=== PATIENT | female | born 1960 | race Asian ===

== ENCOUNTER 2020-08-30 09:20 | Observation (INO) | payer OTHER, SELFPAY ==
[2020-08-30] VITALS (18 sets, daily range): BP systolic 118–164; BP diastolic 67–85; PULSE 72–91; RESP 16–18; TEMP 36.1–36.9; O2SAT 96–100; BMI 28.9
--- NOTE | 2020-08-30 10:10 | ED.GIBLEED ---
HPI - GI Bleed General Chief complaint: GI Bleed Stated complaint: abdominal cramping,bloody diarrhea Time Seen by Provider: 08/30/20 10:10 Source: patient and family Mode of arrival: Ambulatory Limitations: no limitations History of Present Illness HPI Narrative: 60-year-old woman with a history of diabetes, hypertension hyperlipidemia who developed some crampy abdominal pain last night. She had a formed bowel movement with some bright red blood on the outside. Continued to have crampy abdominal pain and this morning had looser stool with blood in clots appreciated in. She has never had any GI bleeding previously. Nobody else in the household is feeling ill. She denies fevers, cough she has had some chills associated with the diarrhea. No chest pain, no dyspnea, no orthostasis type complaints. She has a history of hemorrhoids in association with only and has never had hemorrhoidal bleeding. Related Data Home Medications Medication Instructions Recorded Confirmed atorvastatin [Lipitor] 40 mg PO HS #0 11/01/17 08/30/20 citalopram [Celexa] 20 mg PO QPM #0 11/01/17 08/30/20 loratadine [Claritin] 10 mg PO DAILY #0 11/01/17 08/30/20 benazepril 20 mg PO DAILY 08/30/20 08/30/20 insulin degludec [Tresiba U-100 34 unit SUBCUT BEDTIME 08/30/20 08/30/20 Insulin] liraglutide [Victoza 2-Delfin] 0 mg SUBCUT .COMPLEX 08/30/20 08/30/20 Allergies Allergy/AdvReac Type Severity Reaction Status Date / Time Sulfa (Sulfonamide Allergy Unknown Verified 08/30/20 09:29 Antibiotics) [SULFA (SULFONAMIDE ANTIBIOTICS)] Review of Systems Review of Systems Narrative: Remainder of review of systems including constitutional, ENT, cardiovascular, respiratory, GI, , musculoskeletal, skin, neurologic and psychiatric systems reviewed and are unremarkable except as noted in HPI. Patient History Medical History Diabetes Hyperlipidemia Hypertension Surgical History (Updated 08/30/20 @ 17:25 by Grupo Dial DO) History of cholecystectomy History of hysterectomy Social History household members: spouse Smoking Status: Never smoker alcohol intake: current Smoking Status: Never smoker alcohol intake frequency: 0-2 drinks per day Substance Use Type: does not use Exam Narrative Exam Narrative: General: Healthy appearing, in no acute distress. Able to give a complete and coherent history. Well-nourished well-developed HEENT: Moist mucous membranes, normal sclera with reactive pupils, Neck: No JVD, supple Respiratory: Lungs are clear to auscultation, no wheezing no rales no rhonchi. Full and symmetrical air movement Cardiac: Regular rate and rhythm no murmurs no bruits Abdomen: Soft, mild tenderness in the left lower quadrant without rebound or guarding. Good bowel tones, no flank pain Skin: Warm and dry, no rashes Neurologic: Grossly neurologically intact with no obvious asymmetries or abnormalities Extremities: No trauma, well perfused Psych: Cooperative, appropriate insight and affect Rectal: No significant external hemorrhoids are appreciated and no significant internal hemorrhoids are palpated. There was minor bright red blood on the glove after rectal exam. Initial Vital Signs Initial Vital Signs: Vital Signs Pulse Rate 78 08/30/20 09:25 Pulse Oximetry 97 08/30/20 09:25 Course Orders Ordered: ED Orders 08/30/20 14:40 GI Panel (Film Array) Stat Acetaminophen (Acetaminophen 325 Mg Tablet) 650 mg PO Q6HR PRN PRN Reason: Fever/Mild Pain (1-3) Dextrose (Dextrose 50 % In Water 25 Gm/50 Ml Syringe) 25 gm IV PRN PRN PRN Reason: Hypoglycemia Insulin Aspart (Insulin Aspart 100 Unit/Ml Insuln Pen) 0 unit SUBCUT ACHS PETER; Protocol Insulin Glargine (Insulin Glargine 100 Unit/Ml 3ml Pen) 34 unit SUBCUT BEDTIME PETER Ondansetron HCl (Ondansetron 4 Mg/2 Ml Inj) 4 mg IV Q8HR PRN PRN Reason: Nausea And Vomiting Pantoprazole Sodium (Pantoprazole 40 Mg Vial) 40 mg IV BID PETER Sodium Chloride (Sodium Chloride 0.9% Flush) 10 ml IV PRN PRN PRN Reason: Flush Sodium Chloride (Sodium Chloride 0.9% Flush) 10 ml IV BID PETER Discontinued Medications Sodium Chloride (Normal Saline 0.9%) 1,000 mls @ 1,000 mls/hr IV BOLUS ONE Stop: 08/30/20 11:25 Last Infusion: 08/30/20 11:40 Dose: 0 mls/hr Documented by: Admin: 08/30/20 10:38 Dose: 1,000 mls/hr Documented by: DEEPAK Pantoprazole Sodium (Pantoprazole 40 Mg Vial) 80 mg IV NOW ONE Stop: 08/30/20 17:25 Last Admin: 08/30/20 18:06 Dose: 80 mg Documented by: ALEX Vital Signs Vital signs: Vital Signs - 8 hr 08/30/20 12:00 08/30/20 12:30 08/30/20 13:00 Pulse Rate 73 72 78 Blood Pressure 134/73 131/68 118/74 Pulse Oximetry 99 98 97 08/30/20 13:30 08/30/20 14:00 08/30/20 14:30 Pulse Rate 80 79 83 Blood Pressure 122/73 134/72 133/67 Pulse Oximetry 96 96 96 MDM - GI Bleed Medical Records Attestation: I reviewed the patient's medical records. Lab Data Attestation: I reviewed the patient's lab results. Result diagrams: 08/30/20 19:05 08/30/20 10:20 Labs: Lab Results 08/30/20 08/30/20 08/30/20 Range/Units 10:20 10:20 10:40 WBC 12.5 H (4.5-11.0) X10^3/uL RBC 4.97 (4.0-5.2) X10^6/uL Hgb 14.7 (12.0-16.0) g/dL Hct 43.1 (36-46) % MCV 86.7 (80-100) fL MCH 29.5 (26-34) PG MCHC 34.0 (30-36) % RDW 12.2 (11.6-14.8) % Plt Count 228 (150-400) X10^3/uL Neut % (Auto) 76.2 H (50-75) % Lymph % (Auto) 15.9 L (25-40) % [place] % (Auto) 7.0 (3-14) % Eos % (Auto) 0.3 L (2-4) % Baso % (Auto) 0.6 (0-2) % Neut # (Auto) 9500 H (3612-3936) /uL Lymph # (Auto) 2000 (9793-0924) /uL [place] # (Auto) 900 (0-900) /uL Eos # (Auto) 0 (0-450) /uL Baso # (Auto) 100 (0-100) /uL Sodium 139 (137-145) mmol/L Potassium 3.7 (3.4-5.1) mmol/L Chloride 104 (98-107) mmol/L Carbon Dioxide 29 (22-32) mmol/L BUN 11 (7-17) mg/dL Creatinine 0.48 L (0.52-1.04) mg/dL Estimated GFR > 60.0 (>60) mL/min BUN/Creatinine Ratio 22.9 H (6-22) Glucose 147 H (70-100) mg/dL Calcium 9.2 (8.4-10.2) mg/dL Total Bilirubin 0.9 (0.2-1.3) mg/dL AST 37 H (14-36) IU/L ALT 45 H (<35) IU/L Alkaline Phosphatase 96 (38-126) U/L Total Protein 7.4 (6.3-8.2) g/dL Albumin 4.0 (3.5-5.0) g/dL Globulin 3.4 (1.7-4.1) g/dL Albumin/Globulin Ratio 1.2 (1.0-2.8) Stl C. cayetanensis PCR (Not Detect) Stool Rotavirus (PCR) (Not Detect) Stool Adenovirus (PCR) (Not Detect) Stool Astrovirus (PCR) (Not Detect) Stool Cryptosporidium PCR (Not Detect) Stl E.coli Shiga Tox PCR (Not Detect) St Sh/Enteroin Ecoli PCR (Not Detect) Stool E coli O157 PCR Stl Enterotoxigenic E PCR (Not Detect) Stool EPEC (PCR) (Not Detect) Stl E. histolytica PCR (Not Detect) Stool Giardia Lamblia PCR (Not Detect) Stool Sapovirus (PCR) (Not Detect) Stl P. shigelloides PCR (Not Detect) St Y.enterocolitica PCR (Not Detect) Stool Vibrio (PCR) (Not Detect) Stl Vibrio cholerae PCR (Not Detect) Stl Enteroaggr Ecoli PCR (Not Detect) Stl Norovirus GI/GII PCR (Not Detect) Campylobacter (PCR) (Not Detect) C. difficile Tox (PCR) (Not Detect) SARS-CoV-2 (PCR) (Negative) Salmonella (PCR) (Not Detect) Blood Type A Positive Antibody Screen Negative 08/30/20 08/30/20 Range/Units 10:55 14:40 WBC (4.5-11.0) X10^3/uL RBC (4.0-5.2) X10^6/uL Hgb (12.0-16.0) g/dL Hct (36-46) % MCV (80-100) fL MCH (26-34) PG MCHC (30-36) % RDW (11.6-14.8) % Plt Count (150-400) X10^3/uL Neut % (Auto) (50-75) % Lymph % (Auto) (25-40) % [place] % (Auto) (3-14) % Eos % (Auto) (2-4) % Baso % (Auto) (0-2) % Neut # (Auto) (9625-3044) /uL Lymph # (Auto) (3734-7366) /uL [place] # (Auto) (0-900) /uL Eos # (Auto) (0-450) /uL Baso # (Auto) (0-100) /uL Sodium (137-145) mmol/L Potassium (3.4-5.1) mmol/L Chloride (98-107) mmol/L Carbon Dioxide (22-32) mmol/L BUN (7-17) mg/dL Creatinine (0.52-1.04) mg/dL Estimated GFR (>60) mL/min BUN/Creatinine Ratio (6-22) Glucose (70-100) mg/dL Calcium (8.4-10.2) mg/dL Total Bilirubin (0.2-1.3) mg/dL AST (14-36) IU/L ALT (<35) IU/L Alkaline Phosphatase (38-126) U/L Total Protein (6.3-8.2) g/dL Albumin (3.5-5.0) g/dL Globulin (1.7-4.1) g/dL Albumin/Globulin Ratio (1.0-2.8) Stl C. cayetanensis PCR Not detected (Not Detect) Stool Rotavirus (PCR) Not detected (Not Detect) Stool Adenovirus (PCR) Not detected (Not Detect) Stool Astrovirus (PCR) Not detected (Not Detect) Stool Cryptosporidium PCR Not detected (Not Detect) Stl E.coli Shiga Tox PCR Not detected (Not Detect) St Sh/Enteroin Ecoli PCR Not detected (Not Detect) Stool E coli O157 PCR Not Reportable Stl Enterotoxigenic E PCR Not detected (Not Detect) Stool EPEC (PCR) Not detected (Not Detect) Stl E. histolytica PCR Not detected (Not Detect) Stool Giardia Lamblia PCR Not detected (Not Detect) Stool Sapovirus (PCR) Not detected (Not Detect) Stl P. shigelloides PCR Not detected (Not Detect) St Y.enterocolitica PCR Not detected (Not Detect) Stool Vibrio (PCR) Not detected (Not Detect) Stl Vibrio cholerae PCR Not detected (Not Detect) Stl Enteroaggr Ecoli PCR Not detected (Not Detect) Stl Norovirus GI/GII PCR Not detected (Not Detect) Campylobacter (PCR) Not detected (Not Detect) C. difficile Tox (PCR) Not detected (Not Detect) SARS-CoV-2 (PCR) Negative (Negative) Salmonella (PCR) Not detected (Not Detect) Blood Type Antibody Screen Urine Dip Bedside Urine Glucose Negative Bedside Urine Bilirubin - Negative Bedside Urine Ketone +/- 5 Urine Specific Dennis 1.015 Bedside Urine Occult Blood - Negative Bedside Urine pH 6.5 Bedside Urine Protein - Negative Bedside Urine Urobilinogen - Negative Bedside Urine Nitrite - Negative Bedside Urine Leukocytes - Negative Esterase MDM Narrative Medical decision making narrative: 60-year-old woman with 2 episodes of bright red blood per rectum. Labs are reassuring. She has had no additional bleeding since this morning. She is not orthostatic. She had a colonoscopy approximately 8 years ago and was told that it was entirely normal. She is otherwise feeling well. Discussed options as well as reasons to have bright red blood per rectum. At this point I do not suspect any upper GI bleeding. Diverticular bleed, internal hemorrhoidal bleed and possibility of infectious diarrhea causing bleeding is entertained. Nobody else around her and eating the same foods has had problems with diarrhea so suspect the infectious etiology is less likely. Considering options for disposition, I asked her to provide a stool sample. She was easily able to provide a moderate amount of hematochezia. I suspect that she is in fact having a small diverticular bleed and still oozing a bit. Have recommended observation stay overnight to make sure she does not have more significant bleeding and then discuss need for colonoscopy whether acutely or in outpatient follow-up. Patient and her are agreeable. Stool has been sent for GI array panel Reviewed with Dr Dial who agrees with admit. Requests surgical consultation. Discharge Plan Departure Patient Disposition: Admitted as Observation Clinical Impression: BRBPR (bright red blood per rectum) Admit Date/Time: 08/30/20 15:16 Admit Provider: Grupo Dial
[2020-08-30 10:37] LABS: Add Manual Diff / Slide Review NO; Basophils Absolute Auto 100 /uL (0-100); Basophils Percent Auto 0.6 % (0-2); Eosinophils Absolute Auto 0 /uL (0-450); Eosinophils Percent Auto 0.3 % (2-4); Hematocrit 43.1 % (36-46); Hemoglobin 14.7 g/dL (12.0-16.0); Lymphocytes Absolute Auto 2000 /uL (1100-4500); Lymphocytes Percent Auto 15.9 % (25-40); Mean Corpuscular Hemoglobin 29.5 PG (26-34); Mean Corpuscular Volume 86.7 fL (80-100); Monocytes Absolute Auto 900 /uL (0-900); Neutrophils Absolute Auto 9500 /uL (1500-7000); Neutrophils Percent Auto 76.2 % (50-75); Platelet Count 228 X10^3/uL (150-400); Red Blood Cell Count 4.97 X10^6/uL (4.0-5.2); Red Cell Distribution Width 12.2 % (11.6-14.8); White Blood Cell Count 12.5 X10^3/uL (4.5-11.0)
[2020-08-30] MEDS: SODIUM CHLORIDE 0.9% 1,000 ML 1000 ML IV (10:38)
[2020-08-30 10:44] LABS: Alanine Aminotransferase 45 IU/L (<35); Albumin Globulin Ratio 1.2 (1.0-2.8); Alkaline Phosphatase 96 U/L (38-126); Aspartate Aminotransferase 37 IU/L (14-36); BUN Creatinine Ratio 22.9 (6-22); Bilirubin Total 0.9 mg/dL (0.2-1.3); Blood Urea Nitrogen 11 mg/dL (7-17); Calcium 9.2 mg/dL (8.4-10.2); Carbon Dioxide 29 mmol/L (22-32); Chloride 104 mmol/L (98-107); Estimated Glomerular Filt Rate > 60.0 mL/min (>60); Globulin 3.4 g/dL (1.7-4.1); Glucose 147 mg/dL (70-100); HEMOLYSIS < 15 (0-50); Potassium 3.7 mmol/L (3.4-5.1); Sodium 139 mmol/L (137-145); Total Protein 7.4 g/dL (6.3-8.2)
[2020-08-30 11:21] LABS: COVID19 -Nasal RAPID Negative (Negative)
--- NOTE | 2020-08-30 15:53 | PM.CN ---
History of Present Illness Consult details Date Patient Seen: 08/30/20 Time Patient Seen: 15:53 Chief complaint: abdominal cramping,bloody diarrhea Reason for consult: persistent hematochezia Requesting provider: Radha Camara Narrative: This is a 60-year-old woman with history of insulin-dependent type 2 diabetes (poorly controlled per the patient), hyperlipidemia, and hypertension. She says that yesterday she began having bright red blood per rectum. She is having bilateral lower quadrant pain, equal on both sides. She says she has had so many bloody stools since yesterday that she has lost count. She came into the ER today due to this problem. She was found to have a hemoglobin of 14.7. The ER doctor called me and said that she was about to let the patient go home, and then the patient again had a very copious bright red bloody stool. At that point she recommended the patient be kept overnight for observation, and I was consulted for possible urgent colonoscopy. The patient denies any prior changes to her stool, and had not noted any dark or tarry looking stool, any hard stool, constipation, or diarrhea in recent weeks and months prior to this event. She has had a colonoscopy 8 years ago at the [facility], and was told that it was normal and she needed repeat colonoscopy in 10 years. She denies any history of hemorrhoids, or any anal pain. She does not recall if she was ever told she had diverticulosis on her prior colonoscopy. PMH: DM2, HTN, HLD PSH: lap jessenia, hysterectomy SOC: lives with ; does not smoke Home meds: Benazepril 20 mg daily Tresiba 34 U at night Viktoza 1.8 Atorvastatin 40. Allergies: sulfa FMH: DM2, HTN ROS: The patient denies dizziness, lightheadedness, fevers, chills, nausea, vomiting. She denies any shortness of breath, chest pain, dysuria, extremity swelling or discomfort. Thirteen system review is otherwise negative other than as mentioned below and in HPI. PE: GENERAL: Well groomed and cooperative. Appears stated age. Answers questions promptly and appropriately. Vital signs noted. HENT: Normocephalic, atraumatic. Hearing intact. EYES: Conjunctiva pink, sclera white, no periorbital swelling. CARDIOVASCULAR: Regular rate. No pedal edema. RESPIRATORY: Non-tachypneic, breathing comfortably on room air. GASTROINTESTINAL: Abdomen soft and non-distended; well healed scars from cholecystectomy; mild BL lower abdominal TTP BERNARD: no tenderness, no obvious hemorrhoids, corrina blood in the rectal vault but not pouring out GENITALURINARY: No flank tenderness. MUSCULOSKELETAL: Equal tone and mass bilaterally. SKIN: Warm, dry, soft, appropriate color for ethnicity. No other lesions, rashes, or wounds. NEURO: Alert and Oriented X 3. No gross sensory deficits, or cognitive issues. PSYCH: Appropriate affect and mood. Meds Home Medications and Allergies Home Medications Medication Instructions Recorded Confirmed Type atorvastatin [Lipitor] 40 mg PO HS #0 11/01/17 08/30/20 History citalopram [Celexa] 20 mg PO QPM #0 11/01/17 08/30/20 History loratadine [Claritin] 10 mg PO DAILY #0 11/01/17 08/30/20 History benazepril 20 mg PO DAILY 08/30/20 08/30/20 History insulin degludec [Tresiba U-100 34 unit SUBCUT BEDTIME 08/30/20 08/30/20 History Insulin] liraglutide [Victoza 2-Delfin] 0 mg SUBCUT .COMPLEX 08/30/20 08/30/20 History Allergies Allergy/AdvReac Type Severity Reaction Status Date / Time Sulfa (Sulfonamide Allergy Unknown Verified 08/30/20 09:29 Antibiotics) [SULFA (SULFONAMIDE ANTIBIOTICS)] Exam Vital Signs (past 8 hours): - 08/30/20 09:25 08/30/20 09:26 08/30/20 09:29 Temperature 98.4 F Pulse Rate 78 76 82 Respiratory Rate 18 Blood Pressure 164/78 H 164/78 H Pulse Oximetry 97 98 99 08/30/20 10:15 08/30/20 10:30 08/30/20 11:00 Temperature Pulse Rate 91 H 74 75 Respiratory Rate Blood Pressure 133/85 132/76 136/80 Pulse Oximetry 97 97 100 08/30/20 11:13 08/30/20 11:30 08/30/20 12:00 Temperature Pulse Rate 73 74 73 Respiratory Rate Blood Pressure 129/71 136/74 134/73 Pulse Oximetry 98 100 99 08/30/20 12:30 08/30/20 13:00 08/30/20 13:30 Temperature Pulse Rate 72 78 80 Respiratory Rate Blood Pressure 131/68 118/74 122/73 Pulse Oximetry 98 97 96 08/30/20 14:00 08/30/20 14:30 Temperature Pulse Rate 79 83 Respiratory Rate Blood Pressure 134/72 133/67 Pulse Oximetry 96 96 Oxygen Delivery Method Room Air Objective Labs Result Diagrams: 08/31/20 05:24 08/31/20 05:24 Labs: Laboratory Results - last 24 hr 08/30/20 08/30/20 08/30/20 10:20 10:20 10:40 WBC 12.5 H RBC 4.97 Hgb 14.7 Hct 43.1 MCV 86.7 MCH 29.5 MCHC 34.0 RDW 12.2 Plt Count 228 Neut % (Auto) 76.2 H Lymph % (Auto) 15.9 L [place] % (Auto) 7.0 Eos % (Auto) 0.3 L Baso % (Auto) 0.6 Neut # (Auto) 9500 H Lymph # (Auto) 2000 [place] # (Auto) 900 Eos # (Auto) 0 Baso # (Auto) 100 Sodium 139 Potassium 3.7 Chloride 104 Carbon Dioxide 29 BUN 11 Creatinine 0.48 L Estimated GFR > 60.0 BUN/Creatinine Ratio 22.9 H Glucose 147 H Calcium 9.2 Total Bilirubin 0.9 AST 37 H ALT 45 H Alkaline Phosphatase 96 Total Protein 7.4 Albumin 4.0 Globulin 3.4 Albumin/Globulin Ratio 1.2 SARS-CoV-2 (PCR) Blood Type A Positive Antibody Screen Negative 08/30/20 10:55 WBC RBC Hgb Hct MCV MCH MCHC RDW Plt Count Neut % (Auto) Lymph % (Auto) [place] % (Auto) Eos % (Auto) Baso % (Auto) Neut # (Auto) Lymph # (Auto) [place] # (Auto) Eos # (Auto) Baso # (Auto) Sodium Potassium Chloride Carbon Dioxide BUN Creatinine Estimated GFR BUN/Creatinine Ratio Glucose Calcium Total Bilirubin AST ALT Alkaline Phosphatase Total Protein Albumin Globulin Albumin/Globulin Ratio SARS-CoV-2 (PCR) Negative Blood Type Antibody Screen Assessment & Plan Assessment and plan (1) BRBPR (bright red blood per rectum): Status: Acute (2) Diabetes: Status: Acute (3) Hypertension: Status: Acute (4) Hyperlipidemia: Status: Acute Assessment & Plan narrative: I spent 12 minutes discussing the patient's case with the ER doctor, and reviewing her labs. Spent 26 minutes discussing with the patient her her symptoms, lab findings, possible etiologies of her GI bleed, her history of colonoscopy, and other medical conditions. This is a 60-year-old woman with acute GI bleed. She is hemodynamically stable, but continues to put out bright red blood per rectum. I discussed with the patient the options of staying here for overnight observation, versus going home to return if she does not improve. I told her she states her tonight, we would check her blood counts, and follow her stool output. If her blood counts remained stable on her bloody stool output resolves, she may go home tomorrow and plan to have a colonoscopy as an outpatient. If she does not improve, we may begin a bowel prep tomorrow and plan on scoping her on Wednesday. She is agreement with this plan. Recommendations: Recheck blood count tonight and in the morning Transfuse if needed for hemoglobin less than 8 Track stool output Okay for clear liquid diet Will re-evaluate in the morning whether not the patient will stay for bowel prep and scope on Wednesday, or be discharged home with plans for outpatient scope COVID-19 COVID-19 status: Negative Result date/Date tested (Pos, Neg/Pending): 08/30/20 Time Spent With Patient Time with patient: 25 - 35 minutes (Total of 38 minutes including review of chart and discussion with the ER doctor)
--- NOTE | 2020-08-30 17:06 | PM.HP.1 ---
History of Present Illness History of Present Illness Date Patient Seen: 08/30/20 Time Patient Seen: 17:06 Chief complaint: abdominal cramping,bloody diarrhea Narrative: Mahsa Vick is a 60-year-old female with a past medical history of hypertension, diabetes, hyperlipidemia, and depression who presented after an episode of hematochezia. Her 1st episode was yesterday at work, where she initially felt mildly diaphoretic and nauseous, with moderate crampy abdominal pain. She overall did not feel well but then had a bowel movement that was brown, formed at the small amount of blood on the outside. Overnight her crampy abdominal pain continued, with progression of her bowel movements to more of a maroon color. Crampy abdominal plain is bilateral, but more prominent in the left lower quadrant without radiation. She denies any back pain. She has never had any bleeding before. She states that she stop taking her aspirin yesterday after the episode started. She did get her COVID-19 vaccine yesterday prior to the episode starting. She also reports that her sugar was high in the 260s yesterday and her coworkers at the [facility] gave her some NovoLog. She states that the only thing that she ate that was different than her was a salad yesterday. In the emergency room she was initially hypertensive but this improved on repeat measurements. The remainder of her vital signs were unremarkable. Initial laboratory evaluation revealed a mild leukocytosis with a WBC of 12.5 and hemoglobin of 14.7. Platelets were normal at 228. BMP was fairly unremarkable with a creatinine of 0.48 and a glucose of 147. AST and ALT were mildly elevated at 37 and 45 respectively. Patient had a type and screen in the emergency room. She produced a stool sample for the emergency room that was maroon in colored, and slightly larger than her previous, so the patient was admitted for continued observation of her still active likely lower GI bleed. Surgery, Dr. Barry was contacted in the ER and recommended observation, if patient continues to bleed and Hg significantly declines will proceed with endoscopy after bowel prep. Patient's home medications: Benazepril 20 mg daily Tresiba 34 U at night Viktoza 1.8 Atorvastatin 40. Patient History Medical History Diabetes Hyperlipidemia Hypertension Surgical History (Updated 08/30/20 @ 17:25 by Grupo Dial DO) History of cholecystectomy History of hysterectomy Family & Social History Safety & Behavioral: Feels Safe in Current Yes Environment Been Physically Hurt or No Threatened By a Person Tobacco & Substance use: Smoking Status Never smoker alcohol intake frequency 0-2 drinks per day Substance Use Type does not use Meds Home Medications and Allergies Home Medications Medication Instructions Recorded Confirmed Type amlodipine-benazepril [Lotrel] 1 cap PO QDAY #0 11/01/17 History aspirin 81 mg PO QPM #0 11/01/17 History atorvastatin [Lipitor] 20 mg PO HS #0 11/01/17 History citalopram [Celexa] 20 mg PO QPM #0 11/01/17 History fluticasone propionate [Flonase 1 spray INTRANASAL QDAYP PRN #0 11/01/17 History Allergy Relief] insulin detemir U-100 [Levemir 50 unit SQ QDAY #0 11/01/17 History U-100 Insulin] loratadine [Claritin] 10 mg PO QDAYP PRN #0 11/01/17 History metformin [Glumetza] 1,000 mg PO BIDCC #0 11/01/17 History Allergies Allergy/AdvReac Type Severity Reaction Status Date / Time Sulfa (Sulfonamide Allergy Unknown Verified 08/30/20 09:29 Antibiotics) [SULFA (SULFONAMIDE ANTIBIOTICS)] Review of Systems Review of Systems Narrative: All other systems reviewed with the patient and are negative unless otherwise stated. Exam Vital Signs (past 8 hours): - 08/30/20 09:25 08/30/20 09:26 08/30/20 09:29 Temperature 98.4 F Pulse Rate 78 76 82 Respiratory Rate 18 Blood Pressure 164/78 H 164/78 H Pulse Oximetry 97 98 99 08/30/20 10:15 08/30/20 10:30 08/30/20 11:00 Temperature Pulse Rate 91 H 74 75 Respiratory Rate Blood Pressure 133/85 132/76 136/80 Pulse Oximetry 97 97 100 08/30/20 11:13 08/30/20 11:30 08/30/20 12:00 Temperature Pulse Rate 73 74 73 Respiratory Rate Blood Pressure 129/71 136/74 134/73 Pulse Oximetry 98 100 99 08/30/20 12:30 08/30/20 13:00 08/30/20 13:30 Temperature Pulse Rate 72 78 80 Respiratory Rate Blood Pressure 131/68 118/74 122/73 Pulse Oximetry 98 97 96 08/30/20 14:00 08/30/20 14:30 08/30/20 15:53 Temperature Pulse Rate 79 83 84 Respiratory Rate Blood Pressure 134/72 133/67 130/69 Pulse Oximetry 96 96 99 08/30/20 16:31 Temperature 97.0 F L Pulse Rate 78 Respiratory Rate 16 Blood Pressure 133/80 Pulse Oximetry 99 Oxygen Delivery Method Room Air Narrative Exam Narrative: GENERAL APPEARANCE: Well developed, well nourished, in no acute distress. SKIN: Inspection of the skin reveals no rashes, ulcerations or petechiae. HEENT: Normocephalic atraumatic, extraocular muscles are intact, oropharynx is clear and mucous membranes are moist, neck is supple without adenopathy NECK: Supple and symmetric. There was no thyroid enlargement, and no tenderness, or masses were felt. CHEST: Normal AP diameter and normal contour without any kyphoscoliosis. LUNGS: Auscultation of the lungs revealed no wheezes, rhonchi, or rales. CARDIOVASCULAR: There was a regular rate and rhythm without any murmurs, gallops, rubs. Peripheral pulses were 2+ and symmetric. ABDOMEN: Soft, mildly tender in bilateral lower quadrants, with left slightly worse than right. No guarding or rebound. MUSCULOSKELETAL: There was no tenderness or effusions noted. Muscle strength and tone were normal. EXTREMITIES: No cyanosis, clubbing or edema. NEUROLOGIC: Alert and oriented x 3. Normal affect. Strength is +5/5 in the Upper Extremities and Lower Extremities Bilaterally. Objective Labs Result Diagrams: 08/30/20 10:20 08/30/20 10:20 Labs: Laboratory Results - last 24 hr 08/30/20 08/30/20 08/30/20 10:20 10:20 10:40 WBC 12.5 H RBC 4.97 Hgb 14.7 Hct 43.1 MCV 86.7 MCH 29.5 MCHC 34.0 RDW 12.2 Plt Count 228 Neut % (Auto) 76.2 H Lymph % (Auto) 15.9 L [place] % (Auto) 7.0 Eos % (Auto) 0.3 L Baso % (Auto) 0.6 Neut # (Auto) 9500 H Lymph # (Auto) 2000 [place] # (Auto) 900 Eos # (Auto) 0 Baso # (Auto) 100 Sodium 139 Potassium 3.7 Chloride 104 Carbon Dioxide 29 BUN 11 Creatinine 0.48 L Estimated GFR > 60.0 BUN/Creatinine Ratio 22.9 H Glucose 147 H Calcium 9.2 Total Bilirubin 0.9 AST 37 H ALT 45 H Alkaline Phosphatase 96 Total Protein 7.4 Albumin 4.0 Globulin 3.4 Albumin/Globulin Ratio 1.2 SARS-CoV-2 (PCR) Blood Type A Positive Antibody Screen Negative 08/30/20 10:55 WBC RBC Hgb Hct MCV MCH MCHC RDW Plt Count Neut % (Auto) Lymph % (Auto) [place] % (Auto) Eos % (Auto) Baso % (Auto) Neut # (Auto) Lymph # (Auto) [place] # (Auto) Eos # (Auto) Baso # (Auto) Sodium Potassium Chloride Carbon Dioxide BUN Creatinine Estimated GFR BUN/Creatinine Ratio Glucose Calcium Total Bilirubin AST ALT Alkaline Phosphatase Total Protein Albumin Globulin Albumin/Globulin Ratio SARS-CoV-2 (PCR) Negative Blood Type Antibody Screen Assessment & Plan Assessment & Plan narrative: Mahsa Vick is a 60-year-old female with a past medical history of hypertension, diabetes, hyperlipidemia, and depression who presented after an episode of hematochezia, admitted for continued observation of her still active likely lower GI bleed. 1. GI bleeding, likely lower, acute, present on admission - source most likely lower, however cannot completely rule out upper source 100%, although her BUN is normal which would be atypical for upper GI bleed. Will give 80 mg Protonix once, followed by 40 mg IV b.i.d. -will continue to monitor, patient has had multiple maroon colored stools since arrival. Will continue to follow her hemoglobin and hematocrit. -she did have an episode of diaphoresis prior to her 1st episode and the on set is quite acute, GI panel is currently pending for evaluation of infectious causes. -differential includes but is not limited to malignancy, diverticular bleeding, infectious, and vascular malformation. - appreciate consultation by Dr. Barry, continue to monitor overnight, if continued bleeding proceed with bowel prep tomorrow with colonoscopy to follow. 2. Mild transaminitis, present on admission, unknown chronicity -patient with no upper abdominal pain currently. Will repeat laboratory evaluation. Given her diabetes most likely etiology is secondary to ANNE. 3. Type 2 diabetes, chronic, with insulin use -patient reports recent poor control with sugars in the to 60s which is abnormal for her. -will check an A1c, will change home Tresiba to Lantus 34 units while admitted. Will hold her home Victoza. Will add medium dose sliding scale coverage. -check EKG for further evaluation prior to possible sedation for colonoscopy. 4. Hypertension, chronic -will hold her home medications at this time given active GI bleeding, resume if necessary if her systolics are greater than 180. 5. Hyperlipidemia, chronic -will check a morning lipid panel Code: Full, as discussed with the patient. She states her surrogate decision maker is her . Dispo: Admitted under observation status. COVID-19 COVID-19 status: Negative
--- NOTE | 2020-08-30 17:50 | PC.NURSE ---
Addendum entered by Vangie Woo R.N. 08/31/20 00:01: One bloody stool on evening shift per [employer] report approximately 25 cc/s. Pt denies dizziness when up. Clear liquids without nausea. Spouse has visited this evening. Original Note: Pt to room 210 via wheelchair from E.. Pt is alert, oriented and appropriate. Rates abdominal pain 2/10. Dr. Dial has seen pt. Pt reports two bloody stools since arrival to room. These were unwitnessed. Placed collection devices in pt's toilet with explanation. Pt states agreement to this plan. Clear liquids provided to pt. BL calf scd's in place.
[2020-08-30] MEDS: PANTOPRAZOLE 40 MG VIAL 80 MG IV (18:06)
[2020-08-30 18:33] LABS: Adenovirus F 40/41 Not Detected (Not Detect); Astrovirus Not Detected (Not Detect); Campylobacter Not Detected (Not Detect); Clostridium difficile toxin AB Not Detected (Not Detect); Cryptosporidium Not Detected (Not Detect); Cyclospora cayetanensis Not Detected (Not Detect); Entamoeba histolytica Not Detected (Not Detect); Enteroaggregative E.coli Not Detected (Not Detect); Enteropathogenic E.coli Not Detected (Not Detect); Enterotoxigenic E.coli It/st Not Detected (Not Detect); Giardia lamblia Not Detected (Not Detect); Norovirus GI/GII Not Detected (Not Detect); Plesiomonsa shigelloides Not Detected (Not Detect); Rotavirus A Not Detected (Not Detect); Salmonella Not Detected (Not Detect); Sapovirus Not Detected (Not Detect); Shiga-like toxin-prod E.coli Not Detected (Not Detect); Shigella/Enteroinvasive E.coli Not Detected (Not Detect); Vibrio Not Detected (Not Detect); Vibrio cholerae Not Detected (Not Detect); Yersinia enterocolitica Not Detected (Not Detect)
[2020-08-30 19:22] LABS: Add Manual Diff / Slide Review NO; Basophils Absolute Auto 100 /uL (0-100); Basophils Percent Auto 0.5 % (0-2); Eosinophils Absolute Auto 100 /uL (0-450); Eosinophils Percent Auto 0.7 % (2-4); Hematocrit 39.9 % (36-46); Hemoglobin 13.1 g/dL (12.0-16.0); Lymphocytes Absolute Auto 2600 /uL (1100-4500); Lymphocytes Percent Auto 21.5 % (25-40); Mean Corpuscular HGB Conc 32.9 % (30-36); Mean Corpuscular Hemoglobin 29.1 PG (26-34); Mean Corpuscular Volume 88.5 fL (80-100); Monocytes Absolute Auto 900 /uL (0-900); Monocytes Percent Auto 7.7 % (3-14); Neutrophils Absolute Auto 8400 /uL (1500-7000); Neutrophils Percent Auto 69.6 % (50-75); Platelet Count 206 X10^3/uL (150-400); Red Blood Cell Count 4.51 X10^6/uL (4.0-5.2); Red Cell Distribution Width 12.2 % (11.6-14.8); White Blood Cell Count 12.1 X10^3/uL (4.5-11.0)
[2020-08-30] MEDS: INSULIN GLARGINE 100 UNIT/ML 3ML PEN 34 UNIT SUBCUT (21:23)
[2020-08-31 00:57] VITALS: BP 110/69; PULSE 81; RESP 16; TEMP 37.2; O2SAT 97
--- NOTE | 2020-08-31 01:02 | PC.NURSE ---
Addendum entered by Yamileth Casey R.N. 08/31/20 05:42: Has had no stools this shift. Addendum entered by Yamileth Casey R.N. 08/31/20 05:41: States headache is now 6/10 and requests/medicated with Tylenol. Original Note: Patient is alert and oriented. Breath sounds CTA with RA sat of 97%. HRR. Denies nausea. BT hypoactive; abdomen is soft but tender to palpation. Denies dysuria, frequency or urgency with urination. Moving self in bed and is up in room independently. Denies dizziness or lightheadedness and is steady on feet. No stools as yet on this shift. Reports last BM was still bloody and loose. Complains of 4/10 headache but declines pain medication. Fall risk score is moderate.
[2020-08-31 05:24] VITALS: BP 114/74; PULSE 81; RESP 14; TEMP 36.1; O2SAT 98
[2020-08-31] MEDS: ACETAMINOPHEN 325 MG TABLET 650 MG PO (05:38)
[2020-08-31 06:25] LABS: Add Manual Diff / Slide Review NO; Basophils Absolute Auto 100 /uL (0-100); Basophils Percent Auto 0.6 % (0-2); Eosinophils Absolute Auto 100 /uL (0-450); Eosinophils Percent Auto 0.9 % (2-4); Hematocrit 39.8 % (36-46); Hemoglobin 13.5 g/dL (12.0-16.0); Lymphocytes Absolute Auto 1800 /uL (1100-4500); Lymphocytes Percent Auto 16.9 % (25-40); Mean Corpuscular HGB Conc 33.8 % (30-36); Mean Corpuscular Hemoglobin 29.7 PG (26-34); Mean Corpuscular Volume 87.9 fL (80-100); Monocytes Absolute Auto 700 /uL (0-900); Neutrophils Absolute Auto 7800 /uL (1500-7000); Neutrophils Percent Auto 74.6 % (50-75); Platelet Count 206 X10^3/uL (150-400); Red Blood Cell Count 4.53 X10^6/uL (4.0-5.2); Red Cell Distribution Width 12.4 % (11.6-14.8); White Blood Cell Count 10.4 X10^3/uL (4.5-11.0)
[2020-08-31 06:30] LABS: Alanine Aminotransferase 31 IU/L (<35); Albumin 3.5 g/dL (3.5-5.0); Albumin Globulin Ratio 1.1 (1.0-2.8); Alkaline Phosphatase 72 U/L (38-126); Aspartate Aminotransferase 28 IU/L (14-36); BUN Creatinine Ratio 13.3 (6-22); Bilirubin Unconjugated 1.1 mg/dL (0.0-1.1); Blood Urea Nitrogen 8 mg/dL (7-17); Calcium 8.8 mg/dL (8.4-10.2); Carbon Dioxide 31 mmol/L (22-32); Chloride 107 mmol/L (98-107); Cholesterol 116 mg/dL (140-199); Estimated Glomerular Filt Rate > 60.0 mL/min (>60); Globulin 3.1 g/dL (1.7-4.1); Glucose 103 mg/dL (70-100); HDL Cholesterol 39 mg/dL (40-60); HEMOLYSIS < 15 (0-50); LDL Cholesterol Calculated 59 mg/dL (<100); Magnesium 1.8 mg/dL (1.6-2.3); Potassium 4.3 mmol/L (3.4-5.1); Sodium 138 mmol/L (137-145); Total Protein 6.6 g/dL (6.3-8.2); Triglycerides 90 mg/dL (35-150)
[2020-08-31 06:44] LABS: Hemoglobin A1C% w Est Avg Glu 12.1 % (4.0-6.0)
[2020-08-31 07:58] VITALS: BP 117/73; PULSE 88; RESP 14; TEMP 36.3; O2SAT 97
[2020-08-31] MEDS: PANTOPRAZOLE 40 MG VIAL IV (09:11)
[2020-08-31] MEDS: SODIUM CHLORIDE 0.9% FLUSH 10 ML IV (09:27)
[2020-08-31 10:00] VITALS: O2SAT 98
--- NOTE | 2020-08-31 10:12 | PC.NURSE ---
Addendum entered by Kelvin Posey R.N. 08/31/20 14:42: Discussed D/c with Pt and . Pt states understanding of instructions. IV d/c'd intact. Pt readied for Discharge escorted to car via w/c by Nurse Kelvin. Original Note: Pt alert and oriented offers no overt c/o pain. Discussed plan for the day. in at bedside. Both asking appropriate question. Pt walking around floor without difficulty. assisting
[2020-08-31 12:02] VITALS: BP 131/76; PULSE 74; RESP 16; TEMP 36.1; O2SAT 99
[2020-08-31] MEDS: INSULIN ASPART 100 UNIT/ML INSULN PEN SUBCUT (12:27)
--- NOTE | 2020-08-31 12:52 | CM.DANOTE ---
Discharge Planning/Care Management DCP: assessment: Case received, EMR reviewed. Discussed in Team Rounds. Dr. Dial stated that [facility]/ Dr. Barry was consulting. A dc order is now noted and just met with pt and her Memo in followup. Introduced self and role. Pt says she is comfortable going home today with further outpt follow with Dr. Barry. She is also going to followup with her PCP: Yani Siegel/[facility] re her diabetes as her A1C was noted to be high. Payer: [employer]. P: home today when d/c paperwork is completed. CM Discharge Assessment Start: 08/31/20 12:51 Freq: Status: Active Protocol: Document 08/31/20 12:51 ITV (Rec: 08/31/20 12:52 ITV [id number]) Discharge Planning Assessment Advance Directives? No History Provided By Patient,Family Member Prior Living Arrangements House Household Members spouse Independent with ADL's Yes Is patient alert and oriented? Yes
--- NOTE | 2020-09-03 12:11 | PM.DS.1 ---
History of Present Illness History of Present Illness Date Patient Seen: 08/31/20 Time Patient Seen: 09:00 Chief complaint: abdominal cramping,bloody diarrhea Narrative: Mahsa Vick is a 60-year-old female with a past medical history of hypertension, diabetes, hyperlipidemia, and depression who presented after an episode of hematochezia. Her 1st episode was yesterday at work, where she initially felt mildly diaphoretic and nauseous, with moderate crampy abdominal pain. She overall did not feel well but then had a bowel movement that was brown, formed at the small amount of blood on the outside. Overnight her crampy abdominal pain continued, with progression of her bowel movements to more of a maroon color. Crampy abdominal plain is bilateral, but more prominent in the left lower quadrant without radiation. She denies any back pain. She has never had any bleeding before. She states that she stop taking her aspirin yesterday after the episode started. She did get her COVID-19 vaccine yesterday prior to the episode starting. She also reports that her sugar was high in the 260s yesterday and her coworkers at the [facility] gave her some NovoLog. She states that the only thing that she ate that was different than her was a salad yesterday. In the emergency room she was initially hypertensive but this improved on repeat measurements. The remainder of her vital signs were unremarkable. Initial laboratory evaluation revealed a mild leukocytosis with a WBC of 12.5 and hemoglobin of 14.7. Platelets were normal at 228. BMP was fairly unremarkable with a creatinine of 0.48 and a glucose of 147. AST and ALT were mildly elevated at 37 and 45 respectively. Patient had a type and screen in the emergency room. She produced a stool sample for the emergency room that was maroon in colored, and slightly larger than her previous, so the patient was admitted for continued observation of her still active likely lower GI bleed. Surgery, Dr. Barry was contacted in the ER and recommended observation, if patient continues to bleed and Hg significantly declines will proceed with endoscopy after bowel prep. Patient's home medications: Benazepril 20 mg daily Tresiba 34 U at night Viktoza 1.8 Atorvastatin 40. Discharge Providers Provider Date of admission: 08/30/20 15:16 Discharge Date: 08/31/20 Primary care physician: Yani Siegel MD Discharge provider: Grupo Dial DO Summary Hospital Course Discharge Diagnosis: Please see hospital course by problem list noted below Hospital Course: Mahsa Vick is a 60-year-old female with a past medical history of hypertension, diabetes, hyperlipidemia, and depression who presented after an episode of hematochezia, admitted for continued observation of A still active lower GI bleed upon admission. She had a small bowel movements with minimal blood after admission. Her hemoglobin and hematocrit began to improve. Surgery was consulted and given her clinical improvement she will follow-up as an outpatient for colonoscopy. 1. GI bleeding, likely lower, acute, present on admission - source most likely lower, however cannot completely rule out upper source 100%, although her BUN is normal which would be atypical for upper GI bleed. She was started on 40 mg of IV Protonix twice daily after an initial bolus of 80 mg. Given less likelihood of upper source, she has not needed continue PPI therapy as an outpatient. -she did have an episode of diaphoresis prior to her 1st episode and the on set is quite acute, GI panel Was negative for infectious causes. -differential includes but is not limited to malignancy, diverticular bleeding, infectious, and vascular malformation. - appreciate consultation by Dr. Barry, who recommended fiber supplementation and outpatient follow-up for colonoscopy. -she does take an aspirin daily at home, which I have advised her to hold until her outpatient colonoscopy. 2. Mild transaminitis, present on admission, unknown chronicity -patient with no upper abdominal pain currently. Repeat laboratory evaluation showed slightly improved values. Given her diabetes most likely etiology is secondary to ANNE. 3. Type 2 diabetes, chronic, with insulin use -patient reports recent poor control with sugars in the to 300s which is abnormal for her. -A1c of 12.1%, changed her home Tresiba to Lantus 34 units while admitted. Held her home Victoza during admission but this can be resumed as an outpatient. She had a normal fasting glucose in the morning after admission, recommend further outpatient evaluation and dietary changes with her primary care provider. 4. Hypertension, chronic -patient can continue home medications upon discharge, these were held during the course of her admission given active bleeding. 5. Hyperlipidemia, chronic -continue home Lipitor upon discharge Exam Vital Signs (past 8 hours): Oxygen Delivery Method Room Air Oxygen Flow Rate 0 Narrative Exam Narrative: GENERAL APPEARANCE: Well developed, well nourished, in no acute distress. HEENT: Normocephalic atraumatic, extraocular muscles are intact, oropharynx is clear and mucous membranes are moist, neck is supple without adenopathy LUNGS: Auscultation of the lungs revealed no wheezes, rhonchi, or rales. CARDIOVASCULAR: There was a regular rate and rhythm without any murmurs, gallops, rubs. Peripheral pulses were 2+ and symmetric. ABDOMEN: Soft and nontender with normal bowel sounds. No ascites was noted. MUSCULOSKELETAL: There was no tenderness or effusions noted. Muscle strength and tone were normal. EXTREMITIES: No cyanosis, clubbing or edema. NEUROLOGIC: Alert and oriented x 3. Normal affect. Strength is +5/5 in the Upper Extremities and Lower Extremities Bilaterally. Objective Labs Result Diagrams: 08/31/20 05:24 08/31/20 05:24 [facility] Medical History Diabetes Hyperlipidemia Hypertension Surgical History History of cholecystectomy History of hysterectomy Social History household members: spouse Smoking Status: Never smoker alcohol intake: current Discharge Plan Discharge Plan Patient Disposition: Home Provider Discharge Comment: You were admitted to the hospital with a GI bleed. This stopped on it's own and Dr. Barry would like to do a colonoscopy as an outpatient. Please give her office a call on Wednesday to schedule a colonoscopy in the next few weeks. Please stop your aspirin in the mean time until the procedure. Please follow up with your PMD next week for diabetes control, as your A1c was very high at 12.1%. We recommend using a fiber supplement such as Metamucil, Benefiber, or psyllium husk. Use 2 tspn in 8 oz water once daily to start. You may increase or decrease the amount and frequency as needed. The goal is to have a soft, formed, stool without straining, and without having to sit on the toilet for more than 2 minutes to have a bowel movement. Discharge orders & Medications Prescriptions: Continued loratadine [Claritin] 10 MG tablet 10 mg PO DAILY Qty: 0 RF: 0 citalopram [Celexa] 20 MG tablet 20 mg PO QPM Qty: 0 RF: 0 atorvastatin [Lipitor] 20 MG tablet 40 mg PO HS Qty: 0 RF: 0 benazepril 20 mg Tablet 20 mg PO DAILY RF: 0 Victoza 2-Delfin 0.6 mg/0.1 mL (18 mg/3 mL) Pen Injector 0 mg SUBCUT .COMPLEX RF: 0 Tresiba U-100 Insulin 100 unit/mL Solution 34 unit SUBCUT BEDTIME RF: 0 Follow up/Referrals: Yani Siegel MD [Primary Care Provider] - Zina Barry MD [Physician] - 1 Week (Seen inpatient. Plan for outpatient endoscopy.) Diet/Activity/Treatments Diet: Diet as Tolerated and Carb-consistent/Diabetic Activity: As tolerated Visit Report/Discharge Packet Instructions: DI for Prescription Opioid Use Discharge Data Primary Care Provider: Yani Siegel Attending Provider: Grupo Dial VTE Deep Vein Thrombosis/Pulmonary Embolism Present on Admission: No
== END 2020-08-31 14:15 | disposition home or self-care (01) ==
LOC: ED 14:46 → AC 15:17
PROVIDERS: Admitting Provider Internal Medicine; Emergency Provider Emergency Medicine; PCP Internal Medicine; Referring Provider Emergency Medicine; Visit Provider Internal Medicine
DX: K92.1 Melena (principal); R10.2 Pelvic and perineal pain; I10 Essential (primary) hypertension; E78.5 Hyperlipidemia, unspecified; F32.9 Major depressive disorder, single episode, unspecified; E11.9 Type 2 diabetes mellitus without complications; Z79.4 Long term (current) use of insulin; Z20.822 Contact with and (suspected) exposure to COVID-19; R74.01 Elevation of levels of liver transaminase levels
CPT/HCPCS: 36415; 80048; 80053; 80061; 80076; 81003; 82962; 83036; 83735; 85025; 86850; 86900; 86901; 87507; 87635; 93005; 96361; 96372; 96374; 96376; 99282; 99284; C9803; G0378; C9113

== ENCOUNTER → 2020-10-03 09:06 | Outpatient (CLI) | payer OTHER, SELFPAY ==
[2020-08-30 17:24] VITALS: BMI 28.9
[2020-10-03 10:52] LABS: COVID19 -Nasal RAPID Negative (Negative)
== END ==
PROVIDERS: PCP Internal Medicine; Visit Provider Surgery
DX: Z01.812 Encounter for preprocedural laboratory examination (principal); Z20.822 Contact with and (suspected) exposure to COVID-19
CPT/HCPCS: 87635; C9803

== ENCOUNTER 2020-10-04 08:30 | Day surgery (SDC) | payer OTHER, SELFPAY ==
[2020-08-30 17:24] VITALS: BMI 28.9
[2020-10-04 09:09] VITALS: BP 128/82; PULSE 88; RESP 14; TEMP 36.4; O2SAT 99; BMI 28.7
[2020-10-04] MEDS: SODIUM CHLORIDE 0.9% 1,000 ML 200 ML IV (09:09)
--- NOTE | 2020-10-04 11:56 | PM.PREOP ---
Pre-operative Note COVID-19 COVID-19 status: Negative Result date/Date tested (Pos, Neg/Pending): 10/03/20 Interval Note History & Physical reviewed/Exam performed by Physician: Yes Changes to H&P: No ASA Class (for procedural sedation): II
[2020-10-04] MEDS: MIDAZOLAM 5 MG/5 ML VIAL IV (11:58)
[2020-10-04] MEDS: fentaNYL 250 MCG/5 ML INJ IV (11:58)
--- NOTE | 2020-10-04 12:24 | P.OP.ENDO_ITS ---
Operative Date/Time/Diagnoses Date of procedure: 10/04/20 Time of procedure: 12:24 Pre-op diagnosis: GI bleed, diverticulosis Post-op diagnosis: other (Diverticulosis, no masses or polyps, no active bleeding) Procedure & Clinicians Study performed: Colonoscopy Procedural sedation performed by the endoscopy Same procedure as scheduled: Yes Indications: GI bleed, diverticulosis Surgeon: Zina Barry Procedure Notes SCOAP/Timeout: Performed Procedure in detail: The patient was brought to the room and placed in left lateral decubitus position with all bony prominences padded. A time-out was performed and then the patient was given procedural sedation starting with 2 mg of Versed and 100 mcg of fentanyl. Vitals were monitored throughout the procedure and remained stable. Once adequately sedated, the procedure was begun. A rectal exam was performed revealing no abnormalities. The colonoscope was then introduced to the rectum and advanced to the cecum in the usual fashion. The cecum was identified by the appendiceal orifice, the mucosal tri- fold, and the ileocecal valve. Moderate diverticulosis was seen in the ascending and descending colon, and the sigmoid colon. No polyps were seen. No active source of bleeding were seen. No active diverticulitis was seen. The scope was then retracted while rotating side to side and examining each mucosal fold. At the conclusion of the procedure retroflexion was performed and small grade 1 internal hemorrhoids without stigmata of bleeding were seen. The scope was then withdrawn from the rectum the procedure was concluded. The patient tolerated the procedure well and was transferred to the PACU in stable condition. Scope withdrawal time: 7 Sedation minutes: 24 Findings: diverticulosis Specimen(s): none sent Complications: none Impression: Diverticulosis. Continue fiber supplement/high-fiber diet. Post-procedure Recommendations: Colonscopy in 10 years Follow up: as needed Disposition: PACU
[2020-10-04 12:29] VITALS: BP 119/73; PULSE 84; RESP 15; TEMP 36.6; O2SAT 100
[2020-10-04 12:31] VITALS: BP 137/79; PULSE 86; RESP 17; O2SAT 100
--- NOTE | 2020-10-04 12:33 | SUR.PHASEI ---
Received to PACU after sedation for colonoscopy. Report from NASIR Bueno. Pt awake and alert. Eye glasses returned to pt.
[2020-10-04 12:36] VITALS: BP 131/83; PULSE 78; RESP 12; O2SAT 100
[2020-10-04 12:41] VITALS: BP 136/86; PULSE 84; RESP 17; TEMP 37.1; O2SAT 100
[2020-10-04 12:42] VITALS: BP 133/83; PULSE 78; RESP 14; TEMP 37.1; O2SAT 100
== END 2020-10-04 12:59 | disposition home or self-care (01) ==
PROVIDERS: PCP Internal Medicine; Referring Provider Surgery; Visit Provider Surgery
PROC: 0DJD8ZZ Inspection of Lower Intestinal Tract, Via Natural or Artificial Opening Endoscopic (ICD-10-PCS; CPT 45378; principal; 2020-10-04 10:00)
DX: K62.5 Hemorrhage of anus and rectum (principal); E11.9 Type 2 diabetes mellitus without complications; I10 Essential (primary) hypertension; E78.5 Hyperlipidemia, unspecified; Z79.4 Long term (current) use of insulin; K57.30 Diverticulosis of large intestine without perforation or abscess without bleeding; K64.0 First degree hemorrhoids
CPT/HCPCS: 45378; 99152; J2250; J3010

== ENCOUNTER → 2021-01-02 13:17 | Outpatient (CLI) | payer OTHER, SELFPAY ==
[2020-08-30 17:24] VITALS: BMI 28.9
--- NOTE | 2021-01-02 | DI.MG.S_ITS ---
BILATERAL DIGITAL SCREENING MAMMOGRAM 3D/2D WITH CAD: 01/02/2021 CLINICAL: Routine screening. Family history of breast cancer. Comparison is made to exams dated: 09/07/2018 mammogram, 07/27/2017 mammogram, and 07/06/2016 mammogram - [facility]. The tissue of both breasts is heterogeneously dense. This may lower the sensitivity of mammography. Current study was also evaluated with a Computer Aided Detection (CAD) system. No significant masses, calcifications, or other findings are seen in either breast. There has been no significant interval change. IMPRESSION: NEGATIVE There is no mammographic evidence of malignancy. A 1 year screening mammogram is recommended. This exam was interpreted at Station ID: [id number]. NOTE: For mammograms, a report in lay terms will be sent to the patient. Approximately 15% of breast malignancies will not be visualized mammographically. In the management of a palpable breast mass, a negative mammogram must not discourage biopsy of a clinically suspicious lesion. Electronically Signed By: Lorenzo foreman/pranav:01/02/2021 13:44:52 letter sent: Normal Exam ACR BI-RADS Category 1: Negative [id number]
== END ==
PROVIDERS: PCP Internal Medicine; Referring Provider Internal Medicine; Visit Provider Internal Medicine
DX: Z12.31 Encounter for screening mammogram for malignant neoplasm of breast (principal); Z80.3 Family history of malignant neoplasm of breast
CPT/HCPCS: 77063; 77067

== ENCOUNTER → 2022-01-27 11:43 | Outpatient (CLI) | payer OTHER, SELFPAY ==
[2020-08-30 17:24] VITALS: BMI 28.9
--- NOTE | 2022-01-27 11:44 | DI.MG.S_ITS ---
BILATERAL DIGITAL SCREENING MAMMOGRAM 3D/2D WITH CAD: 01/27/2022 CLINICAL: Routine screening. Family history of breast cancer. Comparison is made to exams dated: 01/02/2021 mammogram - [facility], 09/07/2018 mammogram, and 07/27/2017 mammogram - [facility]. The tissue of both breasts is heterogeneously dense. This may lower the sensitivity of mammography. Current study was also evaluated with a Computer Aided Detection (CAD) system. No significant masses, calcifications, or other findings are seen in either breast. There has been no significant interval change. IMPRESSION: NEGATIVE There is no mammographic evidence of malignancy. A 1 year screening mammogram is recommended. This exam was interpreted at Station ID: [id number]. NOTE: For mammograms, a report in lay terms will be sent to the patient. Approximately 15% of breast malignancies will not be visualized mammographically. In the management of a palpable breast mass, a negative mammogram must not discourage biopsy of a clinically suspicious lesion. Electronically Signed By: Khurram nuno/pranav:01/27/2022 13:06:05 letter sent: Normal Exam ACR BI-RADS Category 1: Negative [id number]
== END ==
PROVIDERS: PCP Internal Medicine; Referring Provider Internal Medicine; Visit Provider Internal Medicine
DX: Z12.31 Encounter for screening mammogram for malignant neoplasm of breast (principal); Z80.3 Family history of malignant neoplasm of breast
CPT/HCPCS: 77063; 77067

== ENCOUNTER → 2023-12-02 09:54 | Outpatient (CLI) | payer OTHER, SELFPAY ==
[2020-08-30 17:24] VITALS: BMI 28.9
--- NOTE | 2023-12-02 09:55 | DI.ECHO.S_ITS ---
[facility]---------+ [facility] +---------+ : : [address] : : : : [id number] : : : : Phone: [phone]+ Echocardiogram Report + + :Name: IRTU MACARIO Study Date: 12/02/2023 Height: 60 in : :[facility] ReadingLocation: Weight: 160 lb : : Gender: Female BSA: 1.7 m2 : :: 1960 Age: 63 yrs BP: 126/83 mmHg: :Reason For Study: SHORTNESS OF BREATH : :Ordering Physician: HUDSON, : :WHIT De Los Santos Performed By: Lila Hoffmann : :Referring: WHIT LACY : + + Interpretation Summary The ejection fraction is estimated to be 55-60%. Diastolic function could not be accurately assessed due to unobtainable data. The right ventricle is normal in size and function. There is trace aortic regurgitation. Pulmonary artery pressures cannot be estimated because of the lack of a measurable TR jet velocity but the IVC suggests a CVP of around 3 mmHg. Procedure: A two-dimensional transthoracic echocardiogram with color flow and Doppler was performed. The study quality was technically adequate. There is no prior echocardiogram noted for this patient. The patient was in sinus rhythm with heart rates between 83-92 bpm during the exam. Left Ventricle: The left ventricle is normal in size and wall thickness. The ejection fraction is estimated to be 55-60%. Diastolic function could not be accurately assessed due to unobtainable data. Right Ventricle: The right ventricle is normal in size and function. Atria: The left atrial size is normal. Right atrial size is normal. There is no Doppler evidence for an interatrial shunt. Mitral Valve: The mitral valve is normal in structure and function. There is trace mitral regurgitation. Aortic Valve: The aortic valve is trileaflet. The aortic valve opens well. There is no aortic valve stenosis. There is trace aortic regurgitation. Tricuspid Valve: The tricuspid valve is normal in structure and function. There is trace tricuspid regurgitation. Pulmonary artery pressures cannot be estimated because of the lack of a measurable TR jet velocity but the IVC suggests a CVP of around 3 mmHg. Pulmonic Valve: The pulmonic valve leaflets are thin and pliable; valve motion is normal. There is trace pulmonic regurgitation. Great Vessels: The aortic root is normal size. The dimensions of the ascending aorta are normal. The IVC is of normal diameter and collapses greater than 50% with a sniff. This suggests a low right atrial pressure of 3 mm Hg. Pericardium/ Pleura There is no pericardial effusion. There is no pleural effusion. MMode/2D Measurements & Calculations LVIDd: 3.6 cm LVOT diam: 2.0 cm LVIDs: 2.5 cm Ao root diam: 2.6 cm FS: 28.8 % asc Aorta Diam: 2.5 cm IVSd: 0.75 cm Ao Arch Diam (Prox Trans): 2.7 cm LVPWd: 0.73 cm LV santana. diameter/BSA (cm/m^2): 2.1 LV sys. diameter/BSA (cm/m^2): 1.5 LA A2 area: 14.1 cm2 RA long axis: 4.5 cm LA A4 area: 14.9 cm2 RA area: 10.7 cm2 LA length (vol): 4.9 cm RA vol: 21.4 ml LA vol: 36.7 ml RA : 12.6 ml/m2 LA vol index: 21.6 ml/m2 IVC diam: 1.4 cm RVD1 (basal): 3.2 cm RVD2 (mid): 2.5 cm TAPSE: 1.7 cm Doppler Measurements & Calculations Ao V2 max: 129.6 cm/sec LVOT Max Carson: 92.0 cm/sec Ao V2 mean: 83.6 cm/sec LV V1 max P.4 mmHg Ao max P.1 mmHg LV V1 VTI: 18.1 cm Ao mean P.3 mmHg LD(I,D): 2.3 cm2 Ao V2 VTI: 24.0 cm LD(V,D): 2.2 cm2 sev ratio: 0.76 LD indexed to BSA (cm^2/m^2): 1.4 Med Peak E' Carson: 8.1 cm/sec TR max carson: 188.2 cm/sec Lat Peak E' Carson: 7.1 cm/sec TR max P.2 mmHg PA V2 max: 94.0 cm/sec PA V2 mean: 71.1 cm/sec PA mean P.2 mmHg PA pr(Accel): 5.4 mmHg SV(LVOT): 55.2 ml Reading Physician:08:29 PM
--- NOTE | 2023-12-02 09:55 | DI.NM.S_ITS ---
PROCEDURE: NM RAVINDRA PERF SPECT REST & STR Rest and exercise myocardial perfusion SPECT with gated imaging and ejection fraction RADIOPHARMACEUTICAL: 12 mCi Tc-99m sestamibi IV at rest and 25.2 mCi Tc-99m sestamibi IV at peak exercise. A one day-protocol was performed. INDICATIONS: Shortness of breath TECHNIQUE: Radiopharmaceutical was injected at peak stress test, and also at rest. SPECT images were obtained. SPECT myocardial perfusion images were displayed in short axis, horizontal long axis, and vertical long axis views. Gated images were reviewed using [employer] software. COMPARISON: None. CARDIAC STRESS: A standard Sanjeev treadmill exercise tolerance test was performed by the patient under the supervision of an attending staff. The patient exercised for 7 minutes and 6 seconds; functional aerobic impairment (IVAN) is -8%. Hemodynamic data: There is normal blood pressure and heart rate response to exercise stress. Patient achieved 101% of maximum predicted heart rate at peak exercise. Symptoms: Patient denied chest pain during exercise. EKG: No diagnostic EKG changes of ischemia; no ectopy. FINDINGS: Raw data: There is good myocardial labeling by radiotracer. No significant motion artifacts. Aftj-fy-iyysm ratio is 0.27 (normal is less than 0.38 for sestamibi tracer, and less than 0.50 for thallium tracer). Left ventricle function: Gated images demonstrate normal left ventricle wall thickening. No segmental wall motion abnormality. No transient ischemic dilation; TID is 0.67 (normal less than 1.3). The left ventricle resting end-diastolic volume is 65 mL. Left ventricle stress ejection fraction is 89%; normal values are above 45%. Myocardial perfusion: There is a mildly intense fixed distal anterior wall defect that improves with prone imaging, suggesting breast attenuation artifact. Infarction less likely. No ischemia. SSS 0. IMPRESSION: Low risk, normal treadmill nuclear stress test. 1) There is a mildly intense fixed distal anterior wall defect that improves with prone imaging, suggesting breast attenuation artifact. Infarction less likely. No ischemia. SSS 0. 2) Normal left ventricular size, wall motion, and systolic function (EF post stress 89%). 3) No diagnostic ST changes during exercise or recovery. 4) No angina during the study. 5) Above average exercise tolerance (10.1METs, IVAN -8%). Target heart rate reached. Appropriate BP response to exercise. 6) No prior nuclear stress test available for comparison. Dictated by: Jaswinder Stark MD on 12/03/2023 at 16:54 Approved by: Jaswinder Stark MD on 12/03/2023 at 16:57
== END ==
LOC: NUCM 09:54
PROVIDERS: PCP Internal Medicine; Referring Provider Internal Medicine Cardiovascular Disease; Visit Provider Internal Medicine Cardiovascular Disease
DX: R06.02 Shortness of breath (principal)
CPT/HCPCS: 78452; 93017; 93306; A9502

== ENCOUNTER 2023-12-21 05:46 | Emergency (ER) | payer OTHER, SELFPAY ==
[2020-08-30 17:24] VITALS: BMI 28.9
--- NOTE | 2023-12-21 05:47 | DI.RAD.S_ITS ---
PROCEDURE: XR CHEST 1V INDICATIONS: cough for 1 week TECHNIQUE: One view of the chest was acquired. COMPARISON: [facility], , CHEST 1 VIEW, 11/01/2017, 11:57. FINDINGS: Surgical changes and devices: None. Lungs and pleura: Lungs are clear. No pleural effusions or pneumothorax. Mediastinum: Mediastinal contours appear normal. Heart size is normal. Bones and chest wall: No suspicious bony lesions. Overlying soft tissues appear unremarkable. IMPRESSION: No acute cardiopulmonary abnormality is seen. No significant discrepancy with the animal treatment investigator radiology preliminary report. Dictated by: Jose Rahman M.D. on 12/21/2023 at 8:01 Approved by: Jose Rahman M.D. on 12/21/2023 at 8:02
[2023-12-21 05:52] VITALS: BP 149/101; PULSE 80; RESP 18; O2SAT 97; BMI 31.2
[2023-12-21 05:56] VITALS: BP 123/63; PULSE 96; RESP 18; TEMP 36.2; O2SAT 98
--- NOTE | 2023-12-21 06:16 | ED.GENADULT ---
HPI - General Adult General Chief complaint: Upper Respiratory Symptoms Stated complaint: cough not getting better 1 week Time Seen by Provider: 12/21/23 05:47 Source: patient Mode of arrival: Ambulatory History of Present Illness HPI narrative: Patient is a 63-year-old female. No underlying lung pathology who is here for evaluation approximately 1 week of a cough. She states she did have sinus congestion sore throat this seems to be improving. Has tried [id number] cough and cold preparations without much improvement. She was here in the emergency department with her to has very similar symptoms. Denies fever. Denies shortness of breath. No chest pain. Related Data Home Medications Medication Instructions Recorded Confirmed atorvastatin 20 mg tablet (Lipitor) 40 mg PO HS ##0 11/01/17 10/04/20 citalopram 20 mg tablet (Celexa) 20 mg PO QPM ##0 11/01/17 10/04/20 loratadine 10 mg tablet (Claritin) 10 mg PO DAILY ##0 11/01/17 10/04/20 benazepril 20 mg tablet 20 mg PO DAILY 08/30/20 10/04/20 insulin degludec 100 unit/mL 34 unit SUBCUT BEDTIME 08/30/20 10/04/20 subcutaneous solution (Tresiba U-100 Insulin) liraglutide 0.6 mg/0.1 mL (18 mg/3 0 mg SUBCUT .COMPLEX 08/30/20 10/04/20 mL) subcutaneous pen injector (Victoza 2-Delfin) multivitamin 1 tab PO DAILY 10/04/20 10/04/20 pioglitazone 15 mg tablet (Actos) 15 mg PO DAILY 10/04/20 10/04/20 Previous Rx's Medication Instructions Recorded benzonatate 100 mg capsule 100 mg PO BID-TID PRN cough #20 12/21/23 caps Allergies Allergy/AdvReac Type Severity Reaction Status Date / Time Sulfa (Sulfonamide Allergy Severe Difficulty Verified 10/04/20 08:50 Antibiotics) Breathing [SULFA (SULFONAMIDE ANTIBIOTICS)] Review of Systems Review of Systems Narrative: See HPI Patient History Medical History Anxiety History of headache Constipation Hyperlipidemia Hypertension Diabetes Surgical History History of cholecystectomy History of hysterectomy Family History Father Hypertension Heart disease Mother Hypertension Sister Breast cancer Grandfather Diabetes mellitus Brother Diabetes mellitus Social History marital status: household members: spouse occupational status: employed Smoking Status: Never smoker alcohol intake: current substance use type: does not use Smoking Status: Never smoker alcohol intake frequency: holidays/special occasions only Substance Use Type: does not use Exam Initial Vital Signs Initial Vital Signs: Vital Signs Pulse Rate 80 12/21/23 05:52 Respiratory Rate 18 12/21/23 05:52 Blood Pressure 149/101 H 12/21/23 05:52 Pulse Oximetry 97 12/21/23 05:52 Oxygen Delivery Method Room Air 12/21/23 05:52 HENMT Head: normal to inspection and normocephalic Ears: TM's normal bilaterally Mouth: oral mucosae normal Throat: posterior oropharynx normal Resp Effort & Inspection: normal respiratory effort Auscultation: clear to auscultation bilaterally Cardio Rate: regular rate Rhythm: regular rhythm Skin General: no rashes or lesions noted Course Orders Ordered: ED Orders 12/21/23 05:47 XR chest 1V Stat Discontinued Medications Benzonatate (Benzonatate 100 Mg Capsule) 100 mg PO NOW ONE Stop: 12/21/23 06:17 Vital Signs Vital signs: Vital Signs - 8 hr 12/21/23 05:52 12/21/23 05:56 Temperature 97.1 F L Pulse Rate 80 96 H Respiratory Rate 18 18 Blood Pressure 149/101 H 123/63 Pulse Oximetry 97 98 Oxygen Delivery Method Room Air Room Air Medical Decision Making Imaging Data Chest x-ray: Radiologist's Impression: No acute cardiopulmonary abnormalities identified MDM Narrative Medical decision making narrative: Chest x-ray shows no signs and oriented. Not hypoxic. Clear lungs. Not tachypneic. No signs of pneumonia. Suspect viral illness. No indication for antibiotics. Will try Tessalon Perles to try to help with symptoms. Discuss this with the patient. She was given return precautions and follow-up instructions. She expressed understanding and agreement. Discharge Plan Departure Patient Disposition: Home Clinical Impression: Bronchitis, Cough Instructions: Cough (Alternative Therapy), Acute Bronchitis Activity Restrictions/Additional Instructions: Continue to take the Claritin. Be sure that you were increasing your fluid intake. Use the benzoate/Tessalon Perles as needed and as directed for the cough. Return to the emergency department for new symptoms. Prescriptions: New benzonatate 100 mg capsule 100 mg PO BID-TID PRN (Reason: cough) Qty: 20 0RF No Action loratadine [Claritin] 10 MG tablet 10 mg PO DAILY Qty: 0 citalopram [Celexa] 20 MG tablet 20 mg PO QPM Qty: 0 atorvastatin [Lipitor] 20 MG tablet 40 mg PO HS Qty: 0 benazepril 20 mg Tablet 20 mg PO DAILY Victoza 2-Delfin 0.6 mg/0.1 mL (18 mg/3 mL) Pen Injector 0 mg SUBCUT .COMPLEX Rx Instructions: 1.8 mg sub q daily in the evening. Tresiba U-100 Insulin 100 unit/mL Solution 34 unit SUBCUT BEDTIME Patient Comments: took 17 units last night per doctor multivitamin Tablet 1 tab PO DAILY pioglitazone [Actos] 15 mg Tablet 15 mg PO DAILY Referrals: Yani Siegel MD [Primary Care Provider] - Stand Alone Forms: Patient Portal/API
[2023-12-21] MEDS: BENZONATATE 100 MG CAPSULE PO (06:20)
== END 2023-12-21 06:23 | disposition home or self-care (01) ==
PROVIDERS: Emergency Provider Emergency Medicine; PCP Internal Medicine
DX: J20.9 Acute bronchitis, unspecified (principal); Z79.899 Other long term (current) drug therapy
CPT/HCPCS: 71045; 99283

== ENCOUNTER → 2024-12-07 07:25 | Outpatient (CLI) | payer OTHER, SELFPAY ==
[2020-08-30 17:24] VITALS: BMI 28.9
--- NOTE | 2024-12-07 07:26 | DI.MG.S_ITS ---
MM screening mammo BI: 12/07/2024. BI-RADS: 1 CLINICAL: 64-year old female for bilateral screening mammogram. Tyrer-Cuzick lifetime risk of 10.7%. Current reported family history of breast cancer: sister. PRIOR EXAMS 01/27/2022, 01/02/2021. MAMMOGRAPHY TECHNIQUE: 2D and 3D (tomosynthesis) digital mammographic views obtained, with additional images as needed for full coverage. Current study was also evaluated with a Computer Aided Detection (CAD) system. DENSITY C. The breasts are heterogeneously dense, which may obscure small masses. MAMMOGRAPHY FINDINGS Bilateral: No suspicious mass, asymmetry, microcalcification, or other abnormality seen. No significant change from comparison. IMPRESSION: * No evidence of malignancy. RECOMMENDATIONS Bilateral * Annual screening mammography. OVERALL ASSESSMENT CATEGORY BI-RADS-1: Negative. [employer] recommends annual screening mammography beginning at age 40 for women with average risk of breast cancer. ELECTRONICALLY SIGNED: Dolly Cosme M.D. on 12/07/2024 at 05:52:45 PM PT Interpreting Station ID: [id number]
== END ==
PROVIDERS: PCP Family Medicine; Referring Provider Family Medicine; Visit Provider Family Medicine
DX: Z12.31 Encounter for screening mammogram for malignant neoplasm of breast (principal); Z80.3 Family history of malignant neoplasm of breast; R92.333 Mammographic heterogeneous density, bilateral breasts
CPT/HCPCS: 77063; 77067